=== PATIENT | male | born 1970 | race Caucasian/White ===

== ENCOUNTER 2017-04-04 06:08 | Day surgery (SDC) | payer OTHER ==
[~2017-04-04] VITALS: Ht 177.8 cm; Wt 89.0 kg
[2017-04-04] VITALS (12 sets, daily range): BP systolic 90–127; BP diastolic 50–88; PULSE 63–100; RESP 11–33; Ht 177.8 cm; Wt 89.0 kg
[~2017-04-04 06:08] MED LIST: ACET1TAB40 PO
--- NOTE | 2017-04-04 07:34 | HPN ---
Date/Time of Note Date/Time of Note DATE: 04/04/17 TIME: 07:34 Interval H&P Admission Note Pt. seen H&P reviewed: No system changes DELPHINE CHEN MD Apr 04, 2017 07:34
[2017-04-04] MEDS ORDERED: PROPOFOL 20 ML ONE (08:20)
[2017-04-04] MEDS ORDERED: LIDOCAINE 2% (SDV) 5 ML INJ ONE (08:20)
[2017-04-04] MEDS ORDERED: FENTAnyl 50 MCG/ML VIAL ONE (08:20)
[2017-04-04] MEDS ORDERED: MIDAZOLAM 1 MG/ML 2 ML INJ ONE (08:20)
[2017-04-04] MEDS ORDERED: PROCHLORPERAZINE 10 MG INJ IV PRN (08:30)
[2017-04-04] MEDS ORDERED: MEPERIDINE 25 MG INJ IV PRN (08:30)
[2017-04-04] MEDS ORDERED: ONDANSETRON 4 MG INJ IV PRN ×2 (08:30→10:30)
[2017-04-04] MEDS ORDERED: DIPHENHYDRAMINE 50 MG INJ IV PRN (08:30)
[2017-04-04] MEDS ORDERED: FENTAnyl 50 MCG/ML VIAL IV PRN (08:30)
[2017-04-04] MEDS ORDERED: OXYCODONE/ACETAMINOPHEN (5/325) TAB PO PRN ×4 (08:30→10:30)
[2017-04-04] MEDS ORDERED: HYDROmorphONE (0.2 MG/ML) 10ML SYG IV PRN ×2 (08:30)
[2017-04-04] MEDS ORDERED: BUPIVACAINE 0.5%/EPI (SDV) 10 ML INJ ONE (09:14)
[2017-04-04] MEDS ORDERED: POLYMYXIN/BACITRACIN 1L IRRIG ONE (09:14)
[2017-04-04] MEDS ORDERED: DEXAMETHASONE 4 MG/ML 1 ML INJ ONE (09:29)
[2017-04-04] MEDS ORDERED: ONDANSETRON 4 MG INJ ONE (09:29)
[2017-04-04] MEDS ORDERED: METOCLOPRAMIDE 10 MG INJ ONE (09:29)
[2017-04-04] MEDS ORDERED: SCOPOLAMINE 1.5 MG PATCH ONE (09:29)
[2017-04-04] MEDS ORDERED: KETOROLAC 30 MG INJ ONE (09:44)
--- NOTE | 2017-04-04 10:16 | OPR ---
Date/Time of Note Date/Time of Note DATE: 04/04/17 TIME: 10:10 Operative Report Procedure Date: Apr 04, 2017 Preoperative Diagnosis Right inguinal hernia without obstruction Postoperative Diagnosis Right inguinal hernia without obstruction (direct) Operation Performed 1. Repair right inguinal hernia with extra large plug 2. Right ilioinguinal nerve block Surgeon: DELPHINE CHEN MD Anesthesia Type: general Anesthesiologist: WALKER BELTRAN MD Estimated Blood Loss: 0 - 10 ml's Transfusion Required: no Specimen: none Grafts/Implants Extra large Bard PerFix plug Tubes/Drains None Complications: no Pt Condition Post Procedure: stable Disposition: PACU Indications Symptomatic Operative\Procedure Findings Direct right inguinal hernia Procedure Description After satisfactory general anesthesia was achieved the abdomen was prepped and draped in the usual fashion. A 4 cm transverse suprapubic right groin incision was made and carried down to the level of the external oblique which was opened in the direction of its fibers. The cord and nerve were retracted preserved. There was a large direct inguinal hernia. This was dissected circumferentially and reduced. The reduction was maintained by placement of an extra large large PerFix plug. This was held in place circumferential sutures of 3-0 Vicryl to healthy fascia circumferentially. Next, the flat portion of the mesh was cut and fashioned to fit in the floor of the canal is an overlay. It was anchored at the pubic tubercle with 2-0 Novafil, laterally to inguinal ligament with interrupted 2-0 Novafil, and medially to conjoined tendon with interrupted 2-0 Novafil. The mesh distal to the cord was reconstituted with a single suture of 2-0 Novafil creating a new internal ring of appropriate size. The cord and nerve were then replaced beneath the external oblique which was closed a running 3-0 Vicryl suture. Next, a right ilioinguinal nerve block was performed. 10 cc of 0.5% Marcaine with epinephrine were injected into the fascia 1 cm medial and inferior to the right anterior iliac spine. 10 more cc of the local anesthetic were injected directly into the wound. Mike's fascia was closed with interrupted 3-0 Vicryl suture, and skin closed with subcuticular absorbable filiberto. Sponge and needle counts were reported as correct 2. DELPHINE CHEN MD Apr 04, 2017 10:16
[2017-04-04] MEDS ORDERED: morphine 2 MG INJ IV PRN (10:30)
== END 2017-04-04 12:18 | disposition home or self-care (01) ==
LOC: SDS 06:08
PROVIDERS: ATTEND Surgery
DX: K40.90 Unilateral inguinal hernia, without obstruction or gangrene, not specified as recurrent (principal); J45.909 Unspecified asthma, uncomplicated
CPT/HCPCS: 49505; C1781; J1100; J1170; J1885; J2250; J2405; J2765; J3010; Z7512; Z7610